=== PATIENT | female | born 1990 | race Caucasian/White ===

== ENCOUNTER → 2016-12-31 | Outpatient (CLI) | payer OTHER ==
--- NOTE | 2016-12-31 15:10 | CARD ---
APPROVED REPORT EXAM: Two-dimensional and M-mode echocardiogram with Doppler and color Doppler. Other Information Quality : Technically LimitedHR: 92bpm Rhythm : NSRTechnically limited study due to body habitus. INDICATION Cardiomegaly 2D DIMENSIONS RVDd3.3 (2.9-3.5cm)Left Atrium(2D)3.9 (1.6-4.0cm) IVSd1.1 (0.7-1.1cm)Aortic Root(2D)2.8 (2.0-3.7cm) LVDd4.9 (3.9-5.9cm)LVOT Diameter2.0 (1.8-2.4cm) PWd1.1 (0.7-1.1cm)LVDs3.5 (2.5-4.0cm) FS (%) 28.4 %SV61.5 ml LVEF(%)54.7 (>50%) Aortic Valve AoV Peak Vijay.143.0cm/sAoV VTI27.4cm AO Peak GR.8.2mmHgLVOT Peak Vijay.107.0cm/s LVOT VTI 19.80cmAO Mean GR.5mmHg AJAY (VMAX)2.81zt9ZNV (VTI)2.27cm2 Mitral Valve MV E Axeecjup786.6cm/sMV DECEL GJLH419zl MV A Olpqsamo84.6cm/sMV E Mean Gr.3mmHg MV HIQ71klS/A Ratio1.6 MV A Mjsxsfgr18rrGND (PHT)4.88cm2 TDI E/Lateral E'8.3E/Medial E'9.9 Pulmonary Valve PV Peak Olxkusvv518.6cm/sPV Peak Grad.4mmHg RVOT VTI12.1cm Tricuspid Valve TR P. Wifqnmqf081dx/sRAP QOYPUXIA0fmOk TR Peak Gr.59niVjGNTR62zsNh Pulmonary Vein S1 Iumxhons17.9cm/sD2 Hkolszwc24.7cm/s LEFT VENTRICLE The left ventricle is normal size. There is normal left ventricular wall thickness. Left ventricle sy stolic function is normal. The Ejection Fraction is 55-60%. There is normal LV segmental wall motion. The left ventricular diastolic function and filling is normal for age. RIGHT VENTRICLE The right ventricle is normal size. The right ventricular systolic function is normal. ATRIA The left atrium size is normal. The right atrium size is normal. The interatrial septum is intact wit h no evidence for an atrial septal defect or patent foramen ovale as noted on 2-D or Doppler imaging. AORTIC VALVE The aortic valve is normal in structure and function. The aortic valve is trileaflet. Doppler and Col or Flow revealed no significant aortic regurgitation. There is no significant aortic valvular stenosi s. MITRAL VALVE The mitral valve is normal in structure and function. There is no mitral valve stenosis. Doppler and Color Flow revealed no mitral valve regurgitation noted. TRICUSPID VALVE The tricuspid valve is normal in structure. Doppler and Color Flow revealed mild tricuspid regurgitat ion. The PA pressure was estimated at 47 mmHg. There is no tricuspid valve stenosis. PULMONIC VALVE The pulmonic valve is not well visualized. Doppler and Color Flow revealed trace to mild pulmonic shayna vular regurgitation. There is no pulmonic valvular stenosis. GREAT VESSELS The aortic root is normal in size. Normal pulmonary venous flow (Doppler). The IVC is dilated and col lapses >50% with inspiration. PERICARDIAL EFFUSION There is no evidence of significant pericardial effusion. Critical Notification Critical Value: No <Conclusion> Left ventricle systolic function is normal. The Ejection Fraction is 55-60%. There is normal LV segmental wall motion. Mild tricuspid regurgitation. There is no evidence of significant pericardial effusion.
== END | disposition home or self-care (01) ==
LOC: ECHO 12:54
PROVIDERS: ATTEND Physician Assistant Medical
DX: I51.7 Cardiomegaly (principal)
CPT/HCPCS: 93306